=== PATIENT | female | born 1970 | race Caucasian/White ===

== ENCOUNTER → 2016-06-13 | Outpatient (CLI) | payer OTHER | LOC: FIMAGING 08:08 | DX: Z12.31 Encounter for screening mammogram for malignant neoplasm of breast (principal) | CPT/HCPCS: G0202 ==

== ENCOUNTER → 2017-01-17 | Outpatient (CLI) | payer OTHER | LOC: FIMAGING 08:15 | PROVIDERS: ATTEND Internal Medicine Endocrinology, Diabetes & Metabolism | DX: E04.2 Nontoxic multinodular goiter (principal) ==

== ENCOUNTER 2017-07-03 07:49 | Observation (INO) | payer OTHER ==
[2017-07-03] MEDS ORDERED: BUPIVACAINE/EPI 0.5% 30 ML SDV ONE (08:03)
[2017-07-03] MEDS ORDERED: THROMBIN (BOVINE) 5,000 UNIT VIAL TP ONE (08:03)
[2017-07-03] MEDS ORDERED: ceFAZolin 2 GM/SWFI 2 GM/20 ML SYR IVP ONE (08:11)
[2017-07-03] MEDS ORDERED: LR 1,000 ML IV ONE (08:16)
[2017-07-03] MEDS ORDERED: LIDOCAINE 1% 2 ML INJ ID PRN (08:16)
--- NOTE | 2017-07-03 09:06 | PDHPUP ---
History & Physical Update H&P update statement: This history and physical update is based on an assessment of the patient which was completed after admission or registration (within 24 hours), but prior to the surgery/procedure. H&P update: H&P reviewed & patient examined, no change in patient's condition since H&P completed
[2017-07-03] MEDS ORDERED: MIDAZOLAM 2 MG/2 ML VIAL ONE (09:20)
[2017-07-03] MEDS ORDERED: SCOPOLAMINE HYDROBROMIDE 1 MG/3 DAYS PATCH TD ONE (09:20)
[2017-07-03] MEDS ORDERED: PROPOFOL 200 MG/20 ML VIAL ONE (09:22)
[2017-07-03] MEDS ORDERED: fentaNYL 100 MCG/2 ML INJ ONE ×2 (09:22)
[2017-07-03] MEDS ORDERED: KETOROLAC 30 MG/1 ML SDV ONE (09:23)
[2017-07-03] MEDS ORDERED: ONDANSETRON 4 MG/2 ML VIAL ONE (09:23)
[2017-07-03] MEDS ORDERED: LIDOCAINE 2% 5 ML SDV ONE (09:23)
[2017-07-03] MEDS ORDERED: DEXAMETHASONE 4 MG/ML VIAL ONE (09:23)
[2017-07-03] MEDS ORDERED: ROCURONIUM 50 MG/5 ML VIAL ONE ×2 (09:27→10:35)
[2017-07-03] MEDS ORDERED: MIDAZOLAM 2 MG/2 ML VIAL IVP ONE (09:50)
--- NOTE | 2017-07-03 09:55 | PDANEPAE ---
ANE History of Present Illness multinodular goiter for total thyroidectomy ANE Past Medical History - Cardiovascular History Hx Hypertension: No Hx Arrhythmias: No Hx Chest Pain: No Hx Coronary Artery / Peripheral Vascular Disease: No Hx CHF / Valvular Disease: No Hx Palpitations: No - Pulmonary History Hx COPD: No Hx Asthma/Reactive Airway Disease: No Hx Recent Upper Respiratory Infection: No Hx Oxygen in Use at Home: No Hx Sleep Apnea: No Sleep Apnea Screening Result - Last Documented: Negative Pulmonary History Comment: DENIES SOB W STAIRS - Neurologic History Hx Cerebrovascular Accident: No Hx Seizures: No Hx Dementia: No - Endocrine History Hx Diabetes: No Endocrine History Comment: THYROID NODULES - Renal History Hx Renal Disorders: No - Liver History Hx Hepatic Disorders: No - Neurological & Psychiatric Hx Hx Neurological and Psychiatric Disorders: Yes Neurological / Psychiatric History Comment: BIPOLAR - Cancer History Hx Cancer: No - Congenital Disorder History Hx Congenital Disorders: No - GI History Hx Gastrointestinal Disorders: No Gastrointestinal History Comment: IBS - Other Health History Other Health History: POYCYSTIC OVARIAN SYNDROME. RECENT ANKLE SPRAIN - Chronic Pain History Chronic Pain: No - Surgical History Prior Surgeries: NORMA 11/17. WISDOM TEETH. LINDA LOWER LID BLEPH ANE Review of Systems Review of systems is: negative Review of Systems: - Exercise capacity METS (RN): 5 METS ANE Patient History - Allergies Allergies/Adverse Reactions: fentanyl Allergy (Verified 06/29/17 16:28) NAUSEA Tricyclic Compounds Allergy (Verified 06/29/17 15:54) Rash DISPRAMINE Allergy (Intermediate, Uncoded 06/05/15 21:16) Rash hayfever Allergy (Mild, Uncoded 06/05/15 21:16) runny nose, sneeze skin sensitivity to chemicals Allergy (Mild, Uncoded 06/05/15 21:16) Hives - Home Medications Home medications: home medication list seen and reviewed Home Medications: Gabapentin 1,200 mg PO 08,12 06/29/17 [Last Taken Unknown] Gabapentin 600 mg PO HS 06/29/17 [Last Taken Unknown] [facility] Carbonate ER [Eskalith Cr 450 mg (*)] 225 mg PO BID 06/29/17 [Last Taken Unknown] carBAMazepine [Tegretol Xr] 1,000 mg PO HS 06/29/17 [Last Taken Unknown] carBAMazepine [Tegretol Xr] 400 mg PO DAILY 06/29/17 [Last Taken Unknown] Abilify 2 mg (*) 07/03/17 [Last Taken 07/02/17] - NPO status NPO Since - Liquids (Date): 07/02/17 NPO Since - Liquids (Time): 09:00 NPO Since - Solids (Date): 07/02/17 NPO Since - Solids (Time): 09:00 - Anes Hx Anes Hx: no prior problems - Smoking Hx Smoking Status: Never smoked - Family Anes Hx Family Hx Anesthesia Complications: NONE ANE Labs/Vital Signs - Vital Signs Blood Pressure: 114/68 Heart Rate: 57 Respiratory Rate: 16 O2 Sat (%): 98 Height: 165.1 cm Weight: 68.039 kg ANE Physical Exam - Airway Neck exam: FROM Mallampati Score: Class 1 Mouth exam: normal dental/mouth exam - Pulmonary Pulmonary: no respiratory distress - Cardiovascular Cardiovascular: regular rate and rhythym - ASA Status ASA Status: II ANE Anesthesia Plan Anesthesia Plan: general endotracheal anesthesia Urgent/Emergent Case: Lay ventura completed preop but documented later for safe timely pt care
[2017-07-03] MEDS ORDERED: SCOPOLAMINE HYDROBROMIDE 1 MG/3 DAYS PATCH TD SCH (10:00)
--- NOTE | 2017-07-03 10:02 | POSTANESTH ---
Post Anesthetic Evaluation Cardiovascular Status: Normal, Stable Respiratory Status: Normal, Stable Level of Consciousness/Mental Status: Can Participate in Eval Pain Control: Adequate, Prn Tx Ordered Nausea/Vomiting Control: Adequate, Prn Tx Ordered Complications Possibly Related to Anesthesia: None Noted
[2017-07-03] MEDS ORDERED: ALBUTEROL 3 ML DEYVIAL IH PRN (11:02)
[2017-07-03] MEDS ORDERED: fentaNYL 100 MCG/2 ML INJ IVP PRN (11:02)
[2017-07-03] MEDS ORDERED: HYDROCODONE/APAP 5/325 TAB PO PRN (11:02)
[2017-07-03] MEDS ORDERED: LR 500 ML IV PRN (11:02)
[2017-07-03] MEDS ORDERED: HYDROmorphONE/DILAUDID 2 MG/ML INJ IVP PRN (11:02)
[2017-07-03] MEDS ORDERED: NALOXONE HCL 0.4 MG/ML INJ IVP PRN (11:02)
[2017-07-03] MEDS ORDERED: ACETAMINOPHEN 500 MG TAB PO PRN (11:02)
[2017-07-03] MEDS ORDERED: ONDANSETRON 4 MG/2 ML VIAL IVP PRN ×2 (11:02→11:13)
[2017-07-03] MEDS ORDERED: oxyCODONE IR 5 MG TAB PO PRN (11:02)
[2017-07-03] MEDS ORDERED: OXYCODONE/APAP 5/325 TAB PO PRN (11:13)
[2017-07-03] MEDS ORDERED: NS W/ 20 KCl/L 1,000 ML IV SCH (11:15)
[2017-07-03] MEDS ORDERED: HYDROmorphone HCL/NS 0.5 MG/ML SYR IVP PRN (12:15)
[2017-07-03] MEDS: IBUPROFEN 600 MG TAB PO PRN ×2 (12:15→20:44)
[2017-07-03] MEDS ORDERED: D5W 1/2 NS W/ 20 KCl/L 1,000 ML IV SCH (14:30)
[2017-07-03] MEDS: GABAPENTIN 400 MG CAP PO SCH (14:36)
--- NOTE | 2017-07-03 18:17 | SOAPPROG ---
SOAP Progress Note Assessment/Plan: Assessment: postop doing well/ afebrile/ chovsteks -/ voice great/ wound ok Plan:home in am 07/03/17 18:16 Objective: Vital Signs Temp Pulse Resp BP Pulse Ox 36.9 C 71 16 113/72 97 07/03/17 15:27 07/03/17 15:27 07/03/17 15:27 07/03/17 15:27 07/03/17 15:27 07/02/17 07/03/17 07/04/17 05:59 05:59 05:59 Intake Total 810 Output Total 20 Balance 790 ICD10 Worksheet Patient Problems: Problems Problem Status Onset Cholelithiasis Acute
--- NOTE | 2017-07-03 18:19 | POSTOPPROG ---
Post Op Note Date of Operation: 07/03/17 Surgeon: Paras Wilson Counsellors: Jodi Vargas Anesthesiologist: Daniel Plascencia Anesthesia: GET(General Endotracheal) Pre-op Diagnosis: large R thyroid nodule Post-op Diagnosis: multinodular goiter, pathology pending Procedure: total thyroidectomy Findings: large cystic multinodular thyroid, R>L lobe, nerve & parathyroids preserved Inf/Abcess present in the surg proc area at time of surgery?: No EBL: Minimal Complications: none
[2017-07-03] MEDS: DOCUSATE SODIUM 100 MG CAP PO SCH (20:43)
[2017-07-03] MEDS: CALCIUM CARBONATE 500 MG CHEWABLE TAB PO SCH (20:44)
[2017-07-03] MEDS ORDERED: carBAMazepine ER 200 MG TAB PO SCH (21:00)
[2017-07-03] MEDS ORDERED: GABAPENTIN 300 MG CAP PO SCH (21:00)
[2017-07-03] MEDS: LITHIUM CARBONATE ER 450 MG TAB PO SCH (21:25)
[2017-07-04] MEDS ORDERED: LEVOTHYROXINE 100 MCG TAB PO SCH (06:00)
[2017-07-04 07:25] VITALS: BP 111/60
[2017-07-04] MEDS: CALCIUM CARBONATE 500 MG CHEWABLE TAB PO SCH (08:18)
[2017-07-04] MEDS ORDERED: CALCIUM CARBONATE 500 MG CHEWABLE TAB PO ONE (08:47)
[2017-07-04] MEDS: DOCUSATE SODIUM 100 MG CAP PO SCH (08:48)
[2017-07-04] MEDS: LITHIUM CARBONATE ER 450 MG TAB PO SCH (08:48)
[2017-07-04] MEDS: GABAPENTIN 400 MG CAP PO SCH (08:48)
--- NOTE | 2017-07-04 08:51 | SOAPPROG ---
SOAP Progress Note Assessment/Plan: Assessment/Plan: 46 Y female status post total thyroidectomy, pod 1. Hypocalcemia. Increase tums. Recheck calcium later today. Wound intact. Remove bandage. Leave Steri-Strips. Okay to shower. Synthroid started. Pathology pending. Dispo: pending calcium levels. S: Pain controlled. No numbness or tingling. No muscle cramps. O: General: Alert, oriented, no acute distress HEENT: Incision is clean, dry, intact. Minimal swelling. No erythema. No ecchymosis. Negative Chovstek's sign. pulm: ctab cor: rrr 07/04/17 08:48 Objective: Vital Signs Temp Pulse Resp BP Pulse Ox 37 C 65 12 111/60 96 07/04/17 07:24 07/04/17 07:24 07/04/17 07:24 07/04/17 07:24 07/04/17 07:24 Laboratory Results 07/04/17 04:35 07/04/17 04:35 07/03/17 07/04/17 07/05/17 05:59 05:59 05:59 Intake Total 2210 Output Total 20 Balance 2190 ICD10 Worksheet Patient Problems: Problems Problem Status Onset Cholelithiasis Acute
[2017-07-04] MEDS ORDERED: carBAMazepine ER 200 MG TAB PO SCH (09:00)
[2017-07-04] MEDS: IBUPROFEN 600 MG TAB PO PRN (09:10)
--- NOTE | 2017-07-04 09:35 | ASMTCASEMG ---
Living Arrangements What is your living Answers: Alone arrangement? Who do you live with? Type Of Residence What kind of residence do Answers: House you live in? Discharge Plan Comments Coordination Status Comments Notes: CM spoke w/ KARLA Sparks regarding d/c POC. Pt is a 46 y/o female admitted for multinodular goiter. Pt will d/c independent when medically stable. No therapies ordered at this time. CM available for changes. Plan: Independent Date Signed: 07/04/2017 09:34 AM Electronically Signed By:CHINMAY Sheehan
[2017-07-04] MEDS ORDERED: PATCH REMOVAL 1 EA PATCH TD ONE (09:51)
[2017-07-04] MEDS ORDERED: CALCIUM CARBONATE 500 MG CHEWABLE TAB PO SCH (12:00)
[2017-07-05] MEDS ORDERED: ENOXAPARIN 40 MG/0.4 ML SYR SC SCH (09:00)
--- NOTE | 2017-07-08 19:40 | GOP ---
[f rep st] OPERATIVE REPORT DATE OF OPERATION: 07/03/2017 SURGEON: Paras Wilson MD PARCEL CONTRACTOR: Jodi Vargas PA-C. PREOPERATIVE DIAGNOSIS: Right thyroid mass. POSTOPERATIVE DIAGNOSIS: Probable adenomatous goiter. PROCEDURE PERFORMED: Near total thyroidectomy. FINDINGS: The patient was found to have a large mass in the right lobe of the thyroid, taking out mo st of the body of the thyroid gland. She also had significant adenomatous masses in the left lobe as well. She had all 4 parathyroid glands which were identified. DESCRIPTION OF PROCEDURE: Patient taken to the operating room where she received satisfactory genera l endotracheal anesthesia, placed in the supine position, prepped and draped in the usual sterile fas hion. Low collar-type incision was made. platysmal flaps were developed to the sternal notch an d to the thyroid cartilage. Strap muscles were in the midline and retracted laterally. Th e right lobe of the thyroid was exposed. It was dissected free of strap muscles, rotated medially, a nd delivered out of its bed in the right neck. The recurrent laryngeal nerve was identified, spared from injury. Both parathyroid glands on the right were identified and dissected away from the thyroi d capsule, preserving the blood supply. After the anatomy was delineated, superior pole was divided with the Harmonic Scalpel and then the th yroid lobe could be dissected away from the recurrent nerve and off the anterior trachea. This was d one with electrocautery and/or the Harmonic Scalpel extended across the midline. Left lobe was then mobilized in a similar manner, again identifying the recurrent laryngeal nerve and both parathyroid g lands which were safely dissected away from the capsule and preserved. Nearly the entire lobe was dissected off the anterior trachea. The specimen was removed and sent to Pathology. Hemostasis was carefully obtained. The wound was irrigated. Hemostasis was ensured. So me topical thrombin was placed in the thyroid bed. Strap muscles approximated with running 3-0 Vicry l suture. Muscular layers were all infiltrated with 0.5% Marcaine. The platysma was closed with a r unning 3-0 Vicryl suture and the skin with a 4-0 Monocryl subcuticular stitch. She tolerated the procedure quite well. She was taken to the recovery room in good condition. There were no complications. Copy requested to: Dr. Mckeon /[id number]/MODL
== END 2017-07-04 14:56 | disposition home or self-care (01) ==
LOC: F3E 07:49
PROVIDERS: ADMIT Surgery; ATTEND Surgery
PROC: 0GJR0ZZ Inspection of Parathyroid Gland, Open Approach (ICD-10-PCS; principal; 2017-07-03 09:15)
PROC: 0GTH0ZZ Resection of Right Thyroid Gland Lobe, Open Approach (ICD-10-PCS; principal; 2017-07-03 09:15)
DX: E04.2 Nontoxic multinodular goiter (principal); E28.2 Polycystic ovarian syndrome; F31.9 Bipolar disorder, unspecified; K58.9 Irritable bowel syndrome, unspecified; Z82.49 Family history of ischemic heart disease and other diseases of the circulatory system; Z80.49 Family history of malignant neoplasm of other genital organs
CPT/HCPCS: 60220; 60500; G0378; J0690; J1100; J1885; J2250; J2405; J2704; J3010

== ENCOUNTER → 2017-08-10 | Outpatient (CLI) | payer OTHER | LOC: FIMAGING 15:48 | DX: Z12.31 Encounter for screening mammogram for malignant neoplasm of breast (principal) ==

== ENCOUNTER → 2018-06-28 | Outpatient (CLI) | payer OTHER | LOC: FIMAGING 15:52 | PROVIDERS: ATTEND Family Medicine | DX: R05 Cough (principal) ==